=== PATIENT | male | born 1960 | race African-American/Black ===

== ENCOUNTER 2018-11-27 11:46 | Emergency (ER) | payer MEDICAID, OTHER ==
[~2018-11-27] VITALS: Ht 182.9 cm; Wt 73.0 kg
[~2018-11-27 11:46] MED LIST: WARF4TAB65 PO
--- NOTE | 2018-11-27 12:00 | NUR ---
PT BIB [facility] FOR RIGHT FLANK PAIN FOR 3 DAYS. PT DIAGNOSED WITH KIDNEY STONES ON 11/25 AT [facility]. PT WAS GIVEN 100MCG FENTANYL, 4 MG ZOFRAN, AND 100 ML NS. PT STATED NO RELIEF FROM PAIN 03/18. EMS NOTICED PHYSIOLOGICAL CHANGE IN VS AFTER MEDICATION GIVEN. PT IS ALERT, ORIENTED, WITH NAD. PT IS CONNECTED TO THE MONITOR. CALL LIGHT WITHIN REACH.
--- NOTE | 2018-11-27 12:33 | NUR ---
REPORT RECEIVED FROM RN JAMAAL, PT SLEEPING ON GURNEY, RESPS EVEN AND UNLABORED. PT WEARING 2L OXYGEN VIA NC, APPLIED BY PREVIOUS RN FOR SPO2 REACHING 88%. BP AND SPO2 MONITORS IN PLACE. AWAITING MD AND ORDERS.
--- NOTE | 2018-11-27 12:37 | NUR ---
EDMD GOMEZ AT BEDSIDE TO ASSESS PT.
[2018-11-27] MEDS ORDERED: ONDANSETRON 2MG/ML, 2ML IVPush ONE (13:00)
--- NOTE | 2018-11-27 13:01 | NUR ---
PT REPORTS FLANK PAIN LEVEL 7/10 AT THIS TIME, PT AWAKE, ALERT AND ORIENTED. PT INSTRUCTED TO PROVIDE CLEAN CATCH UA, URINAL PLACED AT BEDSIDE, PT VERBALIZES UNDERSTANDING.
[2018-11-27 13:04] LABS: MEAN CORPUSCULAR HEMOGLOBIN 28.3 pg (27.5-34.5); MEAN CORPUSCULAR HGB CONC 32.5 g/dL (33.2-36.2); MEAN PLATELET VOLUME 8.6 fL (7.4-10.4); PLATELET COUNT 170 x10^3/uL (130-400); RED BLOOD COUNT 4.15 x10^6/uL (4.38-5.82); RED CELL DISTRIBUTION WIDTH 14.7 % (9.4-14.8)
[2018-11-27] MEDS ORDERED: ONDANSETRON 2MG/ML, 2ML ONE (13:06)
[2018-11-27] MEDS ORDERED: HYDROmorphone 1 MG/ML, 1ML ONE ×2 (13:06→14:26)
[2018-11-27 13:12] LABS: INTERNATIONAL NORMALIZED RATIO 1.89 (0.93-1.1); PROTHROMBIN TIME 19.4 Seconds (9.6-11.5)
[2018-11-27] MEDS: HYDROmorphone 2 MG/ML, 1ML IVPush PRN ×2 (13:12→14:28)
[2018-11-27 13:14] LABS: ALBUMIN 3.8 g/dL (3.4-5.0); CALCIUM 8.6 mg/dL (8.5-10.1); CHLORIDE 109 mmol/L (98-107)
[2018-11-27 13:19] LABS: ALANINE AMINOTRANSFERASE 20 U/L (12-78); ALKALINE PHOSPHATASE 59 U/L (45-117); ANION GAP 6 mmol/L (5-15); BILIRUBIN,TOTAL 0.4 mg/dL (0.2-1.0); TOTAL PROTEIN 7.6 g/dL (6.4-8.2)
--- NOTE | 2018-11-27 13:20 | NUR ---
pt medicated per emar, tolerated well. pt remains awake, alert and oriented. resps even and unlabored. urine collected and sent to lab. bed locked and in lowest position. bp and spo2 monitors in place. call light in reach.
[2018-11-27 13:29] LABS: MICROSCOPIC AUTO
[2018-11-27 13:30] LABS: CULTURE INDICATED? NO
[2018-11-27 13:56] LABS: BASOPHILS # (AUTO) 0.03 x10^3/uL (0-0.1); BASOPHILS % (AUTO) 0 % (0-1); EOSINOPHILS # (AUTO) 0.01 x10^3/uL (0-0.4); EOSINOPHILS % (AUTO) 0 % (1-7); LYMPHOCYTES # (AUTO) 1.26 x10^3/uL (1-3.4); LYMPHOCYTES % (AUTO) 10 % (22-44); MD SCAN; MONOCYTES % (AUTO) 5 % (2-9); NEUTROPHILS # (AUTO) 10.21 x10^3/uL (1.8-6.8); NEUTROPHILS % (AUTO) 84 % (42-75)
--- NOTE | 2018-11-27 14:29 | NUR ---
PT AWAKE, ALERT AND ORIENTED. RESPS EVEN AND UNLABORED. PT REPORTS PAIN LEVEL 5/10, REQUESTS SECOND DOSE DILAUDID. PT MEDICATED PER EMAR, TOLERATED WELL. BP AND SPO2 MONITORS IN PLACE . EDMD GOMEZ AT BEDSIDE TO UPDATE PT WITH POC AND RESULTS.
[2018-11-27] MEDS ORDERED: TAMSULOSIN 0.4 MG CAP.ER.24H PO ONE (15:00)
[2018-11-27] MEDS ORDERED: TAMSULOSIN 0.4 MG CAP.ER.24H ONE (15:27)
--- NOTE | 2018-11-27 15:32 | NUR ---
REPORT GIVEN TO SUSAN HINTON AT BEDSIDE, PT SLEEPING ON GURNEY, RESPS EVEN AND UNLABORED.
--- NOTE | 2018-11-27 15:35 | NUR ---
PT MEDICATED PER EMAR, TOLERATED WITH NO N/V. PT REPORTS FLANK PAIN LEVEL 5/10 AT THIS TIME WHICH IS SATISFACTORY PER PT. PT A&O, RESPS EVEN AND UNLABORED. AWAITING FURTHER ORDERS AT THIS TIME.
[2018-11-27 15:58] VITALS: BP 130/66
--- NOTE | 2018-11-27 15:59 | NUR ---
PT IS RESTING IN BED, RESPIRATIONS EQUAL AND NON LABORED. NAD. PT IS CONNECTED TO THE MONITOR. CALL LIGHT WITHIN REACH.
--- NOTE | 2018-11-27 16:51 | NUR ---
TASK RN: PT REPORTS SOME IMPROVEMENT IN PAIN W/ MEDICATIONS. PT MAINTAINING SPO2 >90% ON RA. DC EDUCATION PROVIDED, PT DEMONSTRATES UNDERSTANDING. PT AMBULATED STEADILY TO DC WITH RN. PT TO TAKE BUS HOME.
--- NOTE | 2018-11-27 17:33 | NUR ---
Patient given discharge instructions and they have confirmed that they understand the instructions. Patient TAKEN OUT OF ED VIA WHEELCHAIR.
== END 2018-11-27 16:54 | disposition home or self-care (01) ==
LOC: ED 16:13
DX: N13.2 Hydronephrosis with renal and ureteral calculous obstruction (principal); R31.9 Hematuria, unspecified
CPT/HCPCS: 36415; 74176; 80053; 81001; 83690; 85025; 85610; 96374; 96375; 96376; 99284; J1170; J2405

== ENCOUNTER 2018-11-27 17:50 | Emergency (ER) | payer MEDICAID ==
[~2018-11-27] VITALS: Ht 182.9 cm; Wt 80.0 kg
[2018-11-27 18:18] VITALS: BP 124/61
[2018-11-27 19:03] LABS: BASOPHILS # (AUTO) 0.03 x10^3/uL (0-0.1); BASOPHILS % (AUTO) 0 % (0-1); EOSINOPHILS % (AUTO) 0 % (1-7); LYMPHOCYTES # (AUTO) 1.86 x10^3/uL (1-3.4); LYMPHOCYTES % (AUTO) 17 % (22-44); MD NO; MEAN CORPUSCULAR HGB CONC 33.5 g/dL (33.2-36.2); MEAN CORPUSCULAR VOLUME 86.7 fL (81-97); MEAN PLATELET VOLUME 8.7 fL (7.4-10.4); MONOCYTES # (AUTO) 0.81 x10^3/uL (0.2-0.8); MONOCYTES % (AUTO) 7 % (2-9); NEUTROPHILS # (AUTO) 8.28 x10^3/uL (1.8-6.8); NEUTROPHILS % (AUTO) 75 % (42-75); PLATELET COUNT 164 x10^3/uL (130-400); RED BLOOD COUNT 4.08 x10^6/uL (4.38-5.82); RED CELL DISTRIBUTION WIDTH 14.5 % (9.4-14.8)
[2018-11-27 19:09] LABS: ALBUMIN 3.9 g/dL (3.4-5.0); ANION GAP 5 mmol/L (5-15); CALCIUM 8.6 mg/dL (8.5-10.1); CHLORIDE 108 mmol/L (98-107); CREATININE 1.01 mg/dL (0.7-1.3)
--- NOTE | 2018-11-27 20:16 | NUR ---
PT CALLED A CAB AND TOOK THE VOUCHER HOME THAT HE WAS GIVEN EARLIER
== END 2018-11-27 20:17 | disposition left against medical advice (07) ==
LOC: ED 20:11
DX: R55 Syncope and collapse (principal)
CPT/HCPCS: 36415; 80048; 82040; 85025; 93005; 99284